=== PATIENT | male | born 1955 | race Caucasian/White ===

== ENCOUNTER → 2019-08-03 | Day surgery (SDC) | payer OTHER ==
[~2019-08-03] MED LIST: HYDROmorphone 2 MG/ML VIAL IV PRN; IV RINGERS,LACTATED 1000ML 1,000 ML IV SCH; MORPHINE SULFATE 2 MG/ML VIAL. IV PRN; ONDANSETRON PF 4 MG/2 ML VIAL. IV PRN; PROCHLORPERAZINE 10 MG/2 ML VIAL. IV PRN; PROPOFOL 20 ML IV ONE; fentaNYL PF VIAL 100 MCG/2 ML VIAL IV PRN
[2019-08-03 09:35] VITALS: BP 123/71
--- NOTE | 2019-08-03 09:58 | HP ---
ADMIT DATE: 08/03/2019 REFERRING PHYSICIAN: Dr. Fransisco Chapman. REASON FOR CONSULTATION: History of colonic polyps. HISTORY OF PRESENT ILLNESS: The patient is a 64-year-old male with past medical history significant for colonic polyps, diverticulosis, seen for interval colonoscopy. Bowel habits are regular without diarrhea or constipation. Family history is negative for colon cancer. Weight and appetite are stable. No melena and/or hematochezia are noted. He is otherwise without additional complaints. PAST MEDICAL HISTORY: Colonic polyps, diverticulosis, hypothyroidism, hyperlipidemia, history of prostate cancer. ALLERGIES: None. FAMILY HISTORY: Significant for hypertension with his mother. MEDICATIONS: Include levothyroxine, atorvastatin, aspirin and eye drops. PAST SURGICAL HISTORY: Hernia repair. REVIEW OF SYSTEMS: Per records. PHYSICAL EXAMINATION: GENERAL: Reveals a well-nourished, well-developed male. VITAL SIGNS: Temperature is 97, pulse 57, respirations 20. HEENT: Reveals normocephalic, atraumatic head. Pupils and extraocular muscles are not tested. Sclerae anicteric. NECK: Supple. LUNGS: Clear. CARDIOVASCULAR: Reveals an S1, S2 without S3, S4. ABDOMEN: Reveals a soft abdomen, normal bowel sounds, without appreciable hepatosplenomegaly. EXTREMITIES: Reveals no cyanosis, clubbing or edema. IMPRESSION: Colorectal screening with history of colonic polyps. RECOMMENDATION: We will recommend the patient proceed with colonoscopy. Risks and benefits of procedure including damage or perforation have been discussed. The patient is willing to proceed at this time. HOLLI AGUILERA MD DR: BRANDON/jacque JOB#: [id number] / [id number]
--- NOTE | 2019-08-05 00:06 | PATHOLOGY ---
[facility] Accession Number: [id number] . 01 Material submitted: . PART A: colon - DESCENDING COLON POLYPECTOMY. Modifiers: descending PART B: cecum - CECAL MASS BIOPSY . 01 Clinical history: . History of polyps . 02 Diagnosis: A. "Descending colon polypectomy", biopsy: - Tubular adenoma; no high grade dysplasia. . B. "Cecal mass BX", biopsy: - Superficial fragments of tubulovillous adenoma without high grade dysplasia. (See comment) . (CLW:mm; 08/04/2019) [facility] 08/04/2019 0952 Local . 02 Comment: Within specimen B, histologic examination is limited by the superficial nature of the biopsy fragments. Sections show tubulovillous adenoma without high grade dysplasia. Of note, this appears to be a small portion of a larger lesion and may not be entirely personal banking representative. Clinical and endoscopic correlation is required. . (CLW:mml; 08/04/2019) . 02 Electronically signed: . Makayla Stokes MD, Pathologist NPI- [id number] . 01 Gross description: . A. The specimen is received in formalin, labeled "Sven Ericks, descending colon polypectomy". Received are two segments of pale cooper soft tissue ranging in size from 0.3 to 0.5 cm in maximum dimensions. The specimen is submitted entirely in cassette A1. . B. The specimen is received in formalin, labeled "Sven Ericks, cecal mass biopsy". Received are multiple (greater than 10) segments of pale cooper soft tissue ranging in size from 0.1 to 0.5 cm in maximum dimensions. The specimen is submitted entirely in cassette B1. (CAA; 08/03/2019) QAC/QAC 08/03/2019 1546 Local . 02 Pathologist provided ICD-10: D12.4, D12.0 . 02 CPT . 280199, 236089 Specimen Comment: A courtesy copy of this report has been sent to [phone], [phone] Specimen Comment: [phone], Specimen Comment: Report sent to ,DR NIETO / DR PAN Performed at: 01 [facility] [address], [place] [id number] MD Satinder Milton MD Phone: [phone] Performed at: 02 [facility] [address] [place], [place] [id number] MD Ke Asencio MD Phone: [phone]
== END ==
LOC: ENDOS 07:42
PROVIDERS: ATTEND Internal Medicine Gastroenterology
DX: Z12.11 Encounter for screening for malignant neoplasm of colon (principal); D12.4 Benign neoplasm of descending colon; D12.0 Benign neoplasm of cecum; K57.30 Diverticulosis of large intestine without perforation or abscess without bleeding; K64.0 First degree hemorrhoids; E03.9 Hypothyroidism, unspecified; E78.5 Hyperlipidemia, unspecified; Z85.46 Personal history of malignant neoplasm of prostate; Z98.890 Other specified postprocedural states; Z86.010 Personal history of colon polyps
CPT/HCPCS: 45380; 45385; 88305; J2704; 45384